=== PATIENT | female | born 1985 | race Caucasian/White ===

== ENCOUNTER 2016-04-24 19:52 | Emergency (ER) | payer MEDICAID ==
[~2016-04-24 19:52] MED LIST: COLACE100 MG PO; IRON325 M1 PO; KEFLEX500 MG PO; LORTAB 5-325 M1 EACH PO; MOTRIN-DPS800 MG PO; PERCOCET 5 DPS1 TAB PO; PHENERGAN DPS25 MG PO; PRENATAL VIT1 TAB PO; PRENATAL VITAM1 EAC1 PO
--- NOTE | 2016-04-25 06:11 | ER ---
ADMIT: 04/24/2016 RM/LOC: ER [facility] MR#: [id number] [address] [address] [place] [address] Emergency Room Report SEX: F AGE: 31 : 1985 DATE: 04/24/2016 The patient is a 31-year-old, 25-week female, 10, para 8-5-2- 6 with twins, states that she has pleuritic left chest pain for approximately a week without hemoptysis, fevers, chills or cough. She states that her brother and dad both due to blood clots, but unaware of what type of coagulopathy. Exam remarkable for nontoxic, acutely ill-appearing female with multiple tattoos. More comfortable in the upright position. No audible rales, rhonchi, wheeze or rub. EKG showed sinus rhythm without ST-T wave change. Chest x-ray, negative. CTA chest negative for PE or infiltrate. Lab remarkable for positive D-dimer 1.01. WBC 10.3, hemoglobin 10.6, lactic 1.1. CRP 0.47. Helicobacter pylori nonreactive, lipase normal, B negative. UA unremarkable. Patient was given IV fluids, Zofran, Dilaudid with improvement of pain. Requested further pain medication, denied. Advised to quit smoking. Prescribed albuterol MDI as needed. Prednisone 40 mg daily x5 days. Follow up Dr. Bradshaw as scheduled. Max Christensen MD/ re JOB #: [id number] CC: Max Christensen MD, Attending Physician Hanna Chandler MD, Family Physician Siri Bradshaw MD
--- NOTE | 2016-04-27 15:16 | ER ---
ADMIT: 04/24/2016 RM/LOC: ER [facility] MR#: [id number] [address] [address] ARISTEORUSLANKITA Sorenson [address] [place] [address] Emergency Room Report SEX: F AGE: 31 : 1985 DATE: 04/24/2016 HISTORY OF PRESENT ILLNESS: A 31-year-old female, upper abdominal and chest pain more than a week. She has gone to her [facility] and primary provider. They have not been able to find anything wrong with her. She says she had a cough, and they treated her as if she had an upper respiratory infection. Her vitals; blood pressure 112/72 with pulse 105, respirations 20, temp 96.8, and O2 sats 100%. ALLERGIES: SHE IS ALLERGIC TO TRAMADOL, TORADOL, TYLENOL, AND MIGRAINE AND NAUSEA MEDICATION. MEDICATIONS: She takes Elmore. SOCIAL HISTORY: She is a smoker of pack a day. PAST MEDICAL HISTORY: Includes 4 C-sections, appendectomy, cyst, right ear surgery, laparoscopic, and tonsillectomy. heart tones 145. She is moderately anxious. She is 25 weeks' . PHYSICAL EXAMINATION: Upon physical examination, she refused to lean forward so I could do a physical examination on her, so I did listen to her chest wall and lungs. Observed her abdomen, listened to her abdomen, and Dr. Christensen took over on the patient for examination. Orders; CBC, CMP, amylase, lipase, lactic acid, UA clean, CRP, H. pylori. Dr. Batron ordered a D-dimer, x-ray, PA, and lateral, EKG, and a CTA. The patient was given Zofran, IV fluids, oxygen, pulse oximetry, monitor technician, and Dilaudid 1 mg. He will continue with the final disposition of the patient. Ambar B Zima, PA / Max Christensen MD / modpratima JOB #: [id number] CC: Max Christensen MD, Attending Physician
[2016-07-26] MEDS ORDERED: OXY IR DPS5 MG PO (13:33)
[2016-07-26] MEDS ORDERED: DULCOLAX-DPS10 MG PR (13:33)
== END 2016-04-25 00:15 | disposition home or self-care (01) ==
LOC: ER 19:52
DX: O99.89 Other specified diseases and conditions complicating pregnancy, childbirth and the puerperium (principal); R09.1 Pleurisy; O99.332 Smoking (tobacco) complicating pregnancy, second trimester; Z3A.25 25 weeks gestation of pregnancy; Z79.899 Other long term (current) drug therapy

== ENCOUNTER → 2016-04-27 | Outpatient (CLI) | payer MEDICAID ==
[~2016-04-27] MED LIST changes: +DULCOLAX-DPS10 MG PR; +OXY IR DPS5 MG PO
== END | disposition home or self-care (01) ==
LOC: EDT 13:30
DX: O24.419 Gestational diabetes mellitus in pregnancy, unspecified control (principal)

== ENCOUNTER 2016-06-21 18:30 | Outpatient (CLI) | payer MEDICAID ==
[~2016-06-21 18:30] MED LIST changes: -DULCOLAX-DPS10 MG PR; -OXY IR DPS5 MG PO
[2016-07-26] MEDS ORDERED: DULCOLAX-DPS10 MG PR (13:33)
[2016-07-26] MEDS ORDERED: OXY IR DPS5 MG PO (13:33)
== END 2016-06-21 20:36 | disposition home or self-care (01) ==
DX: O42.913 Preterm premature rupture of membranes, unspecified as to length of time between rupture and onset of labor, third trimester (principal); Z3A.34 34 weeks gestation of pregnancy

== ENCOUNTER 2016-07-09 18:40 | Outpatient (CLI) | payer MEDICAID ==
[2016-07-26] MEDS ORDERED: DULCOLAX-DPS10 MG PR (13:33)
[2016-07-26] MEDS ORDERED: OXY IR DPS5 MG PO (13:33)
== END 2016-07-09 23:00 | disposition home or self-care (01) ==
LOC: BC 18:40 → 2LDRP 18:40 → BC 23:00
DX: O47.1 False labor at or after 37 completed weeks of gestation (principal); O99.89 Other specified diseases and conditions complicating pregnancy, childbirth and the puerperium; R10.2 Pelvic and perineal pain; Z3A.37 37 weeks gestation of pregnancy

== ENCOUNTER 2016-07-11 20:54 | Emergency (ER) | payer MEDICAID ==
--- NOTE | 2016-07-12 05:59 | ER ---
ADMIT: 07/11/2016 RM/LOC: ER [facility] MR#: [id number] [address] [address] KITA KHALIL [address] [place] [address] Emergency Room Report SEX: F AGE: 31 : 1985 DATE: 07/11/2016 The patient is a 31-year-old, grand multip. Last menstrual period on October 01. G 10, para 6-0-3-6. Complaining of fractured #17 tooth with pain for the past 3 to 4 days as well as abscess right buttock. She has and multiple abscess I and Ds in the past. Exam remarkable for nontoxic, obviously female, otherwise no acute distress. Fractured #17 tooth. Infra-alveolar block with good results. Near complete relief of pain. Right buttock furuncle anesthetized, Xylocaine. Incised, drained, cultured, packed with iodoform. The patient received Dilaudid 2 mg, Reglan 5 mg IM for pain prior to incision and drainage. Home with Augmentin 875 b.i.d. #20. Follow up Dr. Chandler for packing removal within 3 days if not removed at home. Max Christensen MD/ re JOB #: [id number] CC: Max Christensen MD, Attending Physician Hanna Chandler MD, Family Physician MD Siri Mcmillan MD
[2016-07-26] MEDS ORDERED: DULCOLAX-DPS10 MG PR (13:33)
[2016-07-26] MEDS ORDERED: OXY IR DPS5 MG PO (13:33)
== END 2016-07-12 02:59 | disposition home or self-care (01) ==
LOC: ER 20:54
PROC: 3E0T3BZ Introduction of Anesthetic Agent into Peripheral Nerves and Plexi, Percutaneous Approach (ICD-10-PCS; principal; 2016-07-11)
PROC: 0H98XZZ Drainage of Buttock Skin, External Approach (ICD-10-PCS; principal; 2016-07-11)
DX: O9A.213 Injury, poisoning and certain other consequences of external causes complicating pregnancy, third trimester (principal); S02.5XXA Fracture of tooth (traumatic), initial encounter for closed fracture; O98.913 Unspecified maternal infectious and parasitic disease complicating pregnancy, third trimester; L02.31 Cutaneous abscess of buttock; O99.333 Smoking (tobacco) complicating pregnancy, third trimester; Z3A.37 37 weeks gestation of pregnancy; Z88.8 Allergy status to other drugs, medicaments and biological substances; Z79.899 Other long term (current) drug therapy; X58.XXXA Exposure to other specified factors, initial encounter

== ENCOUNTER 2016-07-23 07:00 | Inpatient (IN) | payer MEDICAID ==
[~2016-07-23] VITALS: Ht 160 cm; Wt 82.6 kg
--- NOTE | 2016-07-26 12:43 | OR ---
ADMIT: 07/23/2016 RM/LOC: 224 [id number] [address] [address] SILVIADeltaKITA [address] [place] [address] Operative/Delivery Room Report SEX: F AGE: 31 : 1985 SURGERY DATE: 07/23/2016 SURGEON: Siri Bradshaw MD PREOPERATIVE DIAGNOSES: 1. Term intrauterine at 39 and 0/7th weeks. 2. Gestational diabetes mellitus type A2. 3. History of 4 prior sections. 4. Tobacco abuse. 5. Rh negative. 6. History of herpes simplex virus 2, on suppression. POSTOPERATIVE DIAGNOSES: 1. Term intrauterine at 39 and 0/7th weeks. 2. Gestational diabetes mellitus type A2. 3. History of 4 prior sections. 4. Tobacco abuse. 5. Rh negative. 6. History of herpes simplex virus 2, on suppression. PROCEDURE: Repeat low-transverse section. ASSISTANTS: 1. Alethea Schmidt MD. 2. Italia Willard MD Resident. FINDINGS: Viable male infant with scores of 8 and 9 and a weight of 8 pounds 2 ounces. Intact placenta with 3-vessel cord. Normal tubes, uterus, and ovaries bilaterally. No significant intraabdominal adhesions were encountered. ANESTHESIA: Spinal with Duramorph. ANTIBIOTICS: 2 g of Ancef prior to skin incision. VTE prophylaxis, sequential compression devices. ESTIMATED BLOOD LOSS: 400 mL. IV FLUIDS: 2800 mL of crystalloid. URINE OUTPUT: 50 mL. INDICATIONS FOR PROCEDURE: This is a 31-year-old, G9, P4-1-3-6 who presents to Labor and Delivery with an intrauterine at 39 weeks by an 8-week ultrasound for scheduled repeat low-transverse section. Her has been complicated by the diagnoses listed above. Risks, benefits, and alternatives of the procedure had been discussed previously. PROCEDURE IN DETAIL: Patient was taken to the operating room, where spinal ADMIT: 07/23/2016 RM/LOC: 224 [facility] MR#: [id number] [address] [address] KITA HKALIL [address] [place] [address] Operative/Delivery Room Report SEX: F AGE: 31 : 1985 anesthetic was placed. She was placed in dorsal supine positioning with a leftward tilt, prepped and draped in the usual sterile fashion. A time-out was performed. A Pfannenstiel incision was made over previous incision, carried down to the underlying fascia. Fascia was then incised in the midline and fascial incision was extended bilaterally with Meraz scissors. Subcutaneous tissue was not significantly deep. Mani's x2 were placed on the superior aspect of the fascia and rectus muscles were dissected off. With just slight dissection, peritoneum was entered at this time. Mani's were then placed on the inferior aspect of the fascial incision, and rectus dissected off bluntly. Midline adhesions were taken down with Meraz. The peritoneal incision was then extended bluntly and no adhesions were encountered. Bladder blade was placed with good visualization of lower uterine segment. Bladder flap was created with Metorlandobaum and Russiankaylee and developed digitally. Bladder blade was then replaced. Clean 10 blade scalpel was then used to make hysterotomy incision with clear fluid noted. Incision was then extended bluntly. head was grasped, flexed, and brought to the level of the incision. The rest the infant then delivered. Nuchal cord x1 was noted. Delayed cord clamping x1 minute was then employed. The cord was then clamped and cut. Cord blood was collected. Infant was handed to the waiting nursing staff. Placenta then delivered with gentle traction. Uterus was then exteriorized and cleared of all remaining clots and debris. Hysterotomy incision was then closed using 0 Vicryl in a running locked fashion with good hemostasis. One area of small bleeding over the bladder was cauterized with Bovie. The posterior cul-de-sac was then irrigated. The uterus was returned to the abdomen. Gutters were noted to be clear. The hysterotomy incision was noted to continue to be hemostatic. Peritoneum was then identified and closed using 2-0 Vicryl in a running fashion. Significant diastasis was noted. The fascia was then closed using 0 PDS in a running fashion starting at the left angle and finishing at the right angle with care to bury the knots. The subcutaneous tissue was then irrigated. Any areas of bleeding were cauterized with Bovie. The subcu was reapproximated using 2-0 Vicryl in a running fashion. Skin was closed with 4-0 Vicryl in a running fashion. Sponge and instrument counts were correct x2. COMPLICATIONS: None. SPECIMENS: Placenta to pathology. Cord blood was collected. Siri Bradshaw MD/ re JOB #: [id number] CC: Siri Bradshaw MD, Attending Physician Siri Bradshaw MD, Family Physician
--- NOTE | 2016-07-26 12:43 | DS ---
ADMIT: 07/23/2016 RM/LOC: 224 [facility] [id number] [id number] 2620 [facility] [address] [place] [address] KITA KHALIL [address] [place], [place] [address] Discharge Summary SEX: F AGE: 31 : 1985 ADMISSION DATE: 07/23/2016 DISCHARGE DATE: 07/25/2016 DIAGNOSES: 1. Term intrauterine at 39 weeks and 0 days. 2. History of 4 prior sections. 3. Tobacco abuse. 4. Gestational diabetes mellitus type A2. 5. Depression. 6. Rh negative. 7. History of HSV (herpes simplex virus) 2. 8. Anemia of . PROCEDURES PERFORMED DURING ADMISSION: Repeat low-transverse section. HOSPITAL COURSE: This is a 31-year-old, 1-3-7 who presented to Labor and Delivery for scheduled repeat low-transverse section. Her had been complicated by the above diagnoses. She underwent the above procedure without complications. She was advanced by postoperative day #1, and by postoperative day #2, she was meeting all appropriate milestones. Her hemoglobin on postoperative day #1 was 9.4, down from 10.5. Her blood sugars during hospitalization ranged from 80 to about 192, but mostly in the mid 100s. She was not restarted on her glyburide. DISCHARGE INSTRUCTIONS: The patient was to have pelvic rest for 6 weeks, which means nothing in the vagina. She was instructed to notify physician if she has fevers greater than 100.4, pain that is not controlled by pain medications, or any other questions or concerns. DISCHARGE MEDICATIONS: 1. She is going to take Colace over the counter. 2. Motrin 800 mg 1 tablet q.8 hours p.r.n. pain #60 with 2 refills. 3. Oxycodone 5 mg #25, 1-2 tablets every 4 hours p.r.n. pain. She will follow up in 6 weeks for a postop visit, and she will also do her 2- hour Glucola at that time. Siri Bradshaw MD/ elliott JOB #: [id number] CC: Siri Bradshaw MD, Attending Physician Siri Bradshaw MD, Family Physician
[2016-07-26] MEDS ORDERED: DULCOLAX-DPS10 MG PR (13:33)
[2016-07-26] MEDS ORDERED: OXY IR DPS5 MG PO (13:33)
== END 2016-07-25 13:00 | disposition home or self-care (01) | DRG 765 ==
LOC: 2LDRP 07:00 → BC 07:00 → 2LDRP 07:01 → BC 07-30 10:35
PROC: 10D00Z1 Extraction of Products of Conception, Low, Open Approach (ICD-10-PCS; principal; 2016-07-23)
DX: O34.211 Maternal care for low transverse scar from previous cesarean delivery (principal); O98.32 Other infections with a predominantly sexual mode of transmission complicating childbirth; O24.425 Gestational diabetes mellitus in childbirth, controlled by oral hypoglycemic drugs; A60.00 Herpesviral infection of urogenital system, unspecified; O99.02 Anemia complicating childbirth; D64.9 Anemia, unspecified; O99.344 Other mental disorders complicating childbirth; F32.9 Major depressive disorder, single episode, unspecified; O99.334 Smoking (tobacco) complicating childbirth; F17.210 Nicotine dependence, cigarettes, uncomplicated; O69.81X0 Labor and delivery complicated by cord around neck, without compression, not applicable or unspecified; Z3A.39 39 weeks gestation of pregnancy; Z37.0 Single live birth